=== PATIENT | female | born 1960 | race Caucasian/White ===

== ENCOUNTER → 2020-07-12 | Outpatient (CLI) | payer OTHER ==
[2020-07-13 13:14] LABS: COMPLEMENT C3, SERUM 165 mg/dL (82-167); COMPLEMENT C4, SERUM 28 mg/dL (12-38); RHEUMATOID ARTHRITIS FACTOR <10.0 IU/mL (0.0-13.9)
== END ==
LOC: RAD 11:59
PROVIDERS: Internal Medicine
DX: D89.89 Other specified disorders involving the immune mechanism, not elsewhere classified (principal); K76.0 Fatty (change of) liver, not elsewhere classified; R76.8 Other specified abnormal immunological findings in serum; M25.552 Pain in left hip; M25.551 Pain in right hip; G89.29 Other chronic pain
CPT/HCPCS: 36415; 73522; 83520; 86160; 86431